=== PATIENT | female | born 1975 | race Caucasian/White ===

== ENCOUNTER 2024-12-13 06:21 | Emergency (ER) | payer OTHER, SELFPAY ==
[2024-12-13 06:24] VITALS: BP 116/70
[2024-12-13 06:34] VITALS: BMI 20.8
[2024-12-13 07:02] LABS: % Basophils 1.2 % (0-2); % Eosinophils 1.6 % (0-6); % Immature Granulocytes 0.2 % (0-0.5); % Lymphocytes 33.9 % (20.5-51.1); % Monocytes 5.7 % (1.7-9.3); % Neutrophils 57.4 % (42.2-75.2); Absolute Basophils 0.1 10^3/uL (0-0.2); Absolute Eosinophils 0.2 10^3/uL (0-0.7); Absolute Lymphocytes 3.2 10^3/uL (1.2-3.4); Absolute Monocytes 0.5 10^3/uL (0.1-0.6); Absolute Neutrophils 5.4 10^3/uL (1.4-6.5); Hematocrit 42.4 % (37.0-47.0); Hemoglobin 14.9 g/dL (12.0-16.0); Mean Corp Hgb Conc. 35.1 g/dL (33.0-37.0); Mean Corpuscular Hgb 33.2 pg (27.0-31.0); Mean Corpuscular Volume 94.4 fL (81.0-99.0); Mean Platelet Volume 9.8 fL (7.4-10.4); Nucleated Red Blood Cells % 0 %; Platelet Count 191 10^3/uL (130-400); Red Blood Cell Count 4.49 10^6/uL (4.20-5.40); Red Cell Dist. Width 11.7 % (11.5-14.5); White Blood Cell Count 9.4 10^3/uL (4.8-10.8)
--- NOTE | 2024-12-13 07:04 | ED.GENMED ---
History of Present Illness
General
Chief Complaint: Chest Pain
Source: patient
Exam Limitations: none
Time Seen by Provider: 12/13/24 06:39
History of Present Illness
History of Present Illness:
49-year-old female otherwise healthy smoker presents complaining of chest pain intermittently over the past 2 to 3 days. The pain is hard to describe it starts in the left side of the chest underneath the breast and radiates to the arm and up the
neck. This can happen at rest this can happen with exertion. Its random. 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 No recent travel or surgery. No leg swelling or calf
pain. She denies fever or cough. No nausea or diaphoresis. Currently on my exam she has no chest pain
Past History
Past History
ED Past Medical History: Psychiatric
ED Past Surgical History: None
Social History
Tobacco: Smoker
Employment: Employed
Family History
Family History: Negative Early CAD
Phy Exam
Physical Exam
Physical Exam:
General: Well-appearing female no acute respiratory distress HEENT: Normocephalic atraumatic
Heart: Regular rate and rhythm
Lungs: Clear no wheeze
Extremities: No cyanosis or edema
Skin is warm no rash
Vascular: 2+ radial pulse bilateral wrist
Scores
Heart Score for Chest Pain Patients
STEMI patient?: No
History: Slightly or Non-Suspicious
ECG: Normal
Age: >45 - <65 years
Risk Factors: No Risk Factors
Troponin: </= Normal Limit
Heart Score for Chest Pain Patients: 1
Heart Score Risk: 2.5% MACE over next 6 weeks
Course
Orders/Labs/Results
Orders:
Orders
12/13/24 06:27
ECG [Electrocardiogram (*1)] Urgent
Reason for Study: Chest Pain
EKG- Treatment ONCE
Test Result ONCE
12/13/24 06:34
Complete Blood Count/With Diff Urgent
Comprehensive Metabolic Panel Urgent
HCG, Serum Qualitative Screen Urgent
Troponin I Urgent
12/13/24 06:41
CXR2 [CR Chest - 2 Views ] Urgent
Comment:
Reason For Exam: shortness of breath
12/13/24 07:01
D-Dimer Urgent
Abnormal Lab Results
12/13/24
06:34
MCH 33.2 H pg
(27.0-31.0)
BUN 24 H mg/dl
(7-17)
Glucose 117 H mg/dl
(70-99)
AST 58 H U/L
(14-36)
ALT 84 H U/L
(0-35)
Albumin 5.3 H g/dl
(3.5-5.0)
12/13/24 06:34
12/13/24 06:34
Vital Signs
Initial and Last Documented VS:
Initial Vital Signs
Temp Pulse Resp BP Pulse Ox
97.8 F 80 18 116/70 100
12/13/24 06:24 12/13/24 06:24 12/13/24 06:24 12/13/24 06:24 12/13/24 06:24
Last Documented Vital Signs
Temp Pulse Resp BP Pulse Ox
97.8 F 67 15 116/70 100
12/13/24 06:24 12/13/24 06:45 12/13/24 06:45 12/13/24 06:24 12/13/24 06:24
MDM/Problems Addressed
Differential Diagnosis Includes:
Chest pain radiates to the arm and neck. Consider ACS. No pain currently. Unlikely to be dissection or PE. D-dimer ordered. Patient is stable vital signs. EKG ordered and reviewed shows no ischemic changes with normal sinus rhythm otherwise
*Critical Care Note
Total Time (30-74mins, 75-104mins- exclusive of procedures): Not Applicable
Update Note
Update Note:
Workup. Negative with normal D-dimer and troponin chest x-ray clear. Patient with atypical chest discomfort. No indication for admission but will discharge with follow-up with family doctor
ED Attending Note
-
Portions of this chart may have been created with voice recognition software.� Occasional wrong word or��sound alike� substitutions may have occurred due to the inherent limitations of voice recognition software.
Discharge Plan
Departure
Patient Disposition: Home (Routine Discharge)
Date of Disposition: 12/13/24
Time of Disposition: 09:17
Patient with high blood pressure during this ER visit?: No
Discharge Problem:
Chest pain
Instructions: Chest Pain PCP Follow Up
Prescriptions:
No Action
lamotrigine [Lamictal] 150 MG tablet
200 mg PO BID
lorazepam [Ativan] 2 mg Tablet
2 mg PO BID PRN (Reason: anxity)
lisdexamfetamine [Vyvanse] 50 mg Capsule
50 mg PO DAILY
Rx Instructions:
pt only takes 25mg 50 mg is prescibed.
lurasidone [Latuda] 60 mg Tablet
60 mg PO DAILY
Referrals:
Hoda Mcknight CRNP [Family Provider, Internal Medicine]
Activity Restrictions/Additional Instructions:
Please return here for worsening symptoms otherwise follow-up with your doctor
Interventions
Interventions:
*Risk Screen - Suicide Last Done: 12/13/24 06:24
*General Assessment Last Done: 12/13/24 06:34
*Neglect/Abuse Screening Last Done: 12/13/24 06:24
*ED- Fall Risk Assessment Last Done: 12/13/24 06:34
*ED COVID-19 Vaccine History Last Done: 12/13/24 06:34
ED- Cardiac Assessment Last Done: 12/13/24 06:42
Discharge Date and Time
Print Language: TAIWANESE
[2024-12-13 07:05] LABS: HCG, Serum Qualitative Screen Negative
[2024-12-13 07:08] LABS: ALT (SGPT) 84 U/L (0-35); AST (SGOT) 58 U/L (14-36); Albumin 5.3 g/dl (3.5-5.0); Alkaline Phosphatase 62 U/L (38-126); Blood Urea Nitrogen 24 mg/dl (7-17); Calcium 9.7 mg/dl (8.4-10.2); Carbon Dioxide 25 mmol/L (22-30); Chloride 106 mmol/L (98-107); Estimated Creatinine Clearance 62 ml/min; Glucose 117 mg/dl (70-99); Potassium 3.9 mmol/L (3.5-5.1); Sodium 140 mmol/L (135-145); Total Bilirubin 0.4 mg/dl (0.2-1.3); Total Protein 7.8 g/dl (6.3-8.2); eGFR > 60.00
[2024-12-13 07:32] LABS: Troponin I < 0.012 ng/ml
[2024-12-13 08:05] LABS: D-Dimer 0.39 ug/mlFEU (0.00-0.50)
[2024-12-13 09:28] VITALS: BP 125/86
== END 2024-12-13 09:30 | disposition home or self-care (01) ==
LOC: EMR 06:21
PROVIDERS: Physician Assistant; EMERGENCY PHYSICIAN Emergency Medicine; FAMILY PHYSICIAN Nurse Practitioner Family
DX: R07.89 Other chest pain (principal); F17.200 Nicotine dependence, unspecified, uncomplicated
CPT/HCPCS: 99285; 71046; 80053; 84484; 84703; 85025; 85379; 93005

== ENCOUNTER → 2025-01-21 06:42 | Outpatient (REF) | payer OTHER, SELFPAY | LOC: HWRAD 06:42 | PROVIDERS: ATTENDING PHYSICIAN Nurse Practitioner Family | DX: R79.89 Other specified abnormal findings of blood chemistry (principal) | CPT/HCPCS: 76700 ==